=== PATIENT | female | born 1995 | race Caucasian/White ===

== ENCOUNTER → 2017-05-20 | Outpatient (CLI) | payer BC ==
[2017-05-20 09:09] LABS: HEMATOCRIT 36.8 % (36.0-47.0); HEMOGLOBIN 12.8 g/dL (12.0-15.5); HGB HCT DIFFERENCE 1.6; MEAN CORPUSCULAR HEMOGLOBIN 29.6 pg (27.0-33.4); MEAN CORPUSCULAR HGB CONC 34.9 g/dL (32.0-36.0); MEAN CORPUSCULAR VOLUME 85 fl (80-97); RED BLOOD COUNT 4.33 10^6/uL (3.72-5.28); RED CELL DISTRIBUTION WIDTH 12.9 % (11.5-14.0); WHITE BLOOD COUNT 7.6 10^3/uL (4.0-10.5)
[2017-05-20 09:41] LABS: ALANINE AMINOTRANSFERASE 41 U/L (9-52); ALBUMIN 4.5 g/dL (3.5-5.0); ALKALINE PHOSPHATASE 82 U/L (38-126); ANION GAP 13 (5-19); ASPARTATE AMINO TRANSFERASE 22 U/L (14-36); BILIRUBIN,DIRECT 0.4 mg/dL (0.0-0.4); BILIRUBIN,TOTAL 0.4 mg/dL (0.2-1.3); BLOOD UREA NITROGEN 13 mg/dL (7-20); CALCIUM 10.1 mg/dL (8.4-10.2); CARBON DIOXIDE 22 mmol/L (22-30); CHLORIDE 104 mmol/L (98-107); CHOLESTEROL 148.23 mg/dL (0-200); CREATININE RESULT 0.81 mg/dL (0.52-1.25); Direct HDL 44 mg/dL (>40); GLUCOSE 88 mg/dL (75-110); POTASSIUM 3.9 mmol/L (3.6-5.0); SODIUM 139.3 mmol/L (137-145); TOTAL PROTEIN 7.7 g/dL (6.3-8.2); TRIGLYCERIDES 102 mg/dL (<150)
[2017-05-20 09:52] LABS: DIRECT LDL 83 mg/dL (<100)
== END ==
LOC: OD 07:44
PROVIDERS: ATTEND Nurse Practitioner Primary Care
DX: E66.9 Obesity, unspecified (principal); F41.9 Anxiety disorder, unspecified; J03.90 Acute tonsillitis, unspecified; R19.7 Diarrhea, unspecified
CPT/HCPCS: 36415; 80053; 80061; 82306; 82607; 82746; 84443; 85027

== ENCOUNTER 2018-10-25 10:20 | Emergency (ER) | payer BC ==
[2018-10-25 10:33] VITALS: BP 130/62
[2018-10-25] MEDS ORDERED: ONDANSETRON 4 MG TAB.RAPDIS PO ONE (10:57)
--- NOTE | 2018-10-25 10:57 | ER Document Report ---
ED General - General Chief Complaint: Abdominal Pain Stated Complaint: ABDOMINAL PAIN, NAUSEA Time Seen by Provider: 10/25/18 10:34 Primary Care Provider: RAJENDRA LANGFORD NP [Primary Care Provider] - 11/01/18 Mode of Arrival: Ambulatory Information source: Patient Notes: Patient presents emergency department with complaints of vaginal dryness for the past couple weeks. She reports some itching. She was evaluated by her FEDERAL AGENT on Tuesday and she is now feeling a little better. Has been using lubricant at night. she reports the FEDERAL AGENT told her she did not see anything. She reports she started vomiting yesterday once today. She reports she is had nausea for the past couple weeks. Denies fever or diarrhea. Patient does have an appointment with her FEDERAL AGENT on November 01. Does deny urinary frequency reports some pain with void but she believes is due to the dryness. Denies vaginal discharge. Denies vaginal odor TRAVEL OUTSIDE OF THE [place] IN LAST 30 DAYS: No - HPI Onset: Other Onset/Duration: Persistent Quality of pain: Achy Severity: Mild Pain Level: 2 Associated symptoms: Nausea, Vomiting Exacerbated by: Denies Relieved by: Denies Similar symptoms previously: Yes Recently seen / treated by doctor: Yes - Related Data Allergies/Adverse Reactions: No Known Allergies Allergy (Verified 10/25/18 10:36) Past Medical History - General Information source: Patient Last Menstrual Period: 10/18/18 - Social History Smoking Status: Current Some Day Smoker Cigarette use (# per day): Yes Frequency of alcohol use: Occasional Drug Abuse: None Occupation: [employer] Family History: None Patient has suicidal ideation: No Patient has homicidal ideation: No - Past Medical History Cardiac Medical History: Denies: Hx Coronary Artery Disease, Hx Heart Attack, Hx Hypertension Pulmonary Medical History: Denies: Hx Asthma, Hx Bronchitis, Hx COPD, Hx Pneumonia Neurological Medical History: Denies: Hx Cerebrovascular Accident, Hx Seizures Renal/ Medical History: Denies: Hx Peritoneal Dialysis Musculoskeletal Medical History: Denies Hx Arthritis Psychiatric Medical History: Reports: Hx Anxiety, Hx Depression Past Surgical History: Reports: Hx Cholecystectomy, Hx Oral Surgery - Immunizations Hx Diphtheria, Pertussis, Tetanus Vaccination: Yes Review of Systems - Review of Systems Notes: -Review HPI for review of systems., All other systems negative Physical Exam - Vital signs Vitals: Temp Pulse Resp BP Pulse Ox 98.2 F 62 15 130/62 H 99 10/25/18 10:25 10/25/18 10:25 10/25/18 10:25 10/25/18 10:25 10/25/18 10:25 - Notes Notes: PHYSICAL EXAMINATION: GENERAL: Well-appearing and in no acute distress NONTOXIC LOOKING HEAD: Atraumatic, normocephalic. EYES: Pupils equal round , extraocular movements intact, sclera anicteric, conjunctiva are normal. ENT: nares patent, Moist mucous membranes. NECK: Normal range of motion, supple without lymphadenopathy LUNGS: CTAB and equal. No wheezes rales or rhonchi. HEART: Regular rate and rhythm without murmurs ABDOMEN: Soft, slight tenderness umbilical area. No guarding, no rebound BACK: No flank pain EXTREMITIES: Normal range of motion, no pitting edema. No cyanosis. NEUROLOGICAL: Cranial nerves grossly intact. Normal sensory/motor exams. PSYCH: Normal mood, normal affect. SKIN: Warm, Dry, normal turgor, no rashes or lesions noted Course - Re-evaluation Re-evalutation: 10/25/18 10:56 I offered to do another pelvic for the patient but she declined. She reports she would be evaluated by her FEDERAL AGENT on November 01. She is not worried about STDs. She reports her FEDERAL AGENT did check her for that and was told she was negative. Will evaluate for possible UTI questionable . 10/25/18 12:16 Labs unremarkable urine shows trace ketones. Patient has not vomited since arr ival. She has been able to drink p.o. fluids. Patient was instructed on all labs. She was instructed on antinausea medicine. Dictation of this chart was performed using voice recognition software; therefore, there may be some unintended grammatical errors. - Vital Signs Vital signs: Temp Pulse Resp BP Pulse Ox 98.2 F 62 15 130/62 H 99 10/25/18 10:25 10/25/18 10:25 10/25/18 10:25 10/25/18 10:25 10/25/18 10:25 - Laboratory Result Diagrams: 10/25/18 10:51 10/25/18 10:51 Laboratory results interpreted by me: 10/25/18 10:40 Urine Ketones TRACE H Urine Ascorbic Acid 20 H Discharge - Discharge Clinical Impression: Abdominal pain, Nausea & vomiting Condition: Stable Disposition: HOME, SELF-CARE Instructions: Abdominal Pain ([facility]), Antinausea Medication ([facility]) Additional Instructions: *You have been evaluated for abdominal pain, nausea/vomiting, vaginal dryness *Take medication as prescribed for nausea *Push fluids *Follow up with your DISPATCHER MAINTENANCE SERVICE next week as scheduled *Return to ED for worsening condition, changes, needs, Concerns *Return to ED if not better in 24 hours Monitor your blood pressure. Your blood pressure was elevated today. This may be because you were anxious, in pain or because you need medication. It is important to follow up with your primary care provider for full evaluation. Forms: Elevated Blood Pressure, Return to Work Referrals: RAJENDRA LANGFORD NP [Primary Care Provider] - 11/01/18
[2018-10-25 10:58] LABS: APPEARANCE,URINE SLIGHTLY-CLOUDY; BILIRUBIN,URINE NEGATIVE (NEGATIVE); COLOR,URINE YELLOW; GLUCOSE, URINE NEGATIVE (NEGATIVE); KETONES,URINE TRACE mg/dL (NEGATIVE); LEUKOCYTE ESTERASE,URINE NEGATIVE (NEGATIVE); NITRITE,URINE NEGATIVE (NEGATIVE); PROTEIN,URINE NEGATIVE (NEGATIVE); URINE SPECIFIC GRAVITY 1.031; UROBILINOGEN,URINE NEGATIVE mg/dL (<2.0)
[2018-10-25 11:13] LABS: ABSOLUTE EOSINOPHILS # (AUTO) 0.2 10^3/uL (0.0-0.6); ABSOLUTE LYMPHOCYTES (AUTO) 1.7 10^3/uL (0.5-4.7); ABSOLUTE MONOCYTES (AUTO) 0.5 10^3/uL (0.1-1.4); ABSOLUTE NEUT (AUTO) 2.9 10^3/uL (1.7-8.2); BASOPHILS % (AUTO) 0.5 % (0-2); EOSINOPHILS % (AUTO) 3.6 % (0-6); HEMATOCRIT 36.4 % (36.0-47.0); HEMOGLOBIN 12.6 g/dL (12.0-15.5); LYMPHOCYTES % (AUTO) 32.2 % (13-45); MEAN CORPUSCULAR HEMOGLOBIN 29.7 pg (27.0-33.4); MEAN CORPUSCULAR HGB CONC 34.5 g/dL (32.0-36.0); MEAN CORPUSCULAR VOLUME 86 fl (80-97); MONOCYTES % (AUTO) 8.6 % (3-13); PLATELET COUNT 279 10^3/uL (150-450); RED BLOOD COUNT 4.24 10^6/uL (3.72-5.28); RED CELL DISTRIBUTION WIDTH 13.1 % (11.5-14.0); SEGMENTED NEUTROPHILS % (AUTO) 55.1 % (42-78); TOTAL CELLS COUNTED % (AUTO) 100 %; WHITE BLOOD COUNT 5.3 10^3/uL (4.0-10.5)
[2018-10-25 11:43] LABS: ALANINE AMINOTRANSFERASE 31 U/L (9-52); ALBUMIN 4.6 g/dL (3.5-5.0); ALKALINE PHOSPHATASE 64 U/L (38-126); ANION GAP 8 (5-19); ASPARTATE AMINO TRANSFERASE 21 U/L (14-36); BILIRUBIN,DIRECT 0.1 mg/dL (0.0-0.4); BILIRUBIN,TOTAL 0.5 mg/dL (0.2-1.3); BLOOD UREA NITROGEN 14 mg/dL (7-20); CARBON DIOXIDE 25 mmol/L (22-30); CHLORIDE 105 mmol/L (98-107); GLUCOSE 103 mg/dL (75-110); POTASSIUM 3.9 mmol/L (3.6-5.0); SODIUM 137.9 mmol/L (137-145); TOTAL PROTEIN 7.5 g/dL (6.3-8.2)
[2018-10-25] MEDS ORDERED: ONDANSETRON ODT 4 MG TAB (6 TAB/ER DISP) PO PRN (12:11)
== END 2018-10-25 12:26 | disposition home or self-care (01) ==
LOC: ER 10:20
DX: R10.9 Unspecified abdominal pain (principal); R11.2 Nausea with vomiting, unspecified; L29.9 Pruritus, unspecified; R10.2 Pelvic and perineal pain; R10.815 Periumbilic abdominal tenderness; F17.210 Nicotine dependence, cigarettes, uncomplicated
CPT/HCPCS: 99284; 36415; 84702; 85025; 81025; 80053; 81001; S0119

== ENCOUNTER 2019-02-19 01:59 | Emergency (ER) | payer BC ==
[2019-02-19 03:53] LABS: ABSOLUTE EOSINOPHILS # (AUTO) 0.1 10^3/uL (0.0-0.6); ABSOLUTE LYMPHOCYTES (AUTO) 1.8 10^3/uL (0.5-4.7); ABSOLUTE MONOCYTES (AUTO) 0.6 10^3/uL (0.1-1.4); ABSOLUTE NEUT (AUTO) 4.7 10^3/uL (1.7-8.2); BASOPHILS % (AUTO) 0.3 % (0-2); EOSINOPHILS % (AUTO) 1.7 % (0-6); HEMATOCRIT 35.6 % (36.0-47.0); LYMPHOCYTES % (AUTO) 24.8 % (13-45); MEAN CORPUSCULAR HEMOGLOBIN 29.2 pg (27.0-33.4); MEAN CORPUSCULAR HGB CONC 33.7 g/dL (32.0-36.0); MEAN CORPUSCULAR VOLUME 87 fl (80-97); MONOCYTES % (AUTO) 7.7 % (3-13); PLATELET COUNT 234 10^3/uL (150-450); SEGMENTED NEUTROPHILS % (AUTO) 65.5 % (42-78); TOTAL CELLS COUNTED % (AUTO) 100 %; WHITE BLOOD COUNT 7.2 10^3/uL (4.0-10.5)
[2019-02-19] MEDS ORDERED: ACETAMINOPHEN 325 MG TABLET PO ONE (04:44)
--- NOTE | 2019-02-19 05:16 | RADIOLOGY REPORT (SQ) ---
EXAM: Pelvic ultrasound. INDICATION: Pelvic pain. TECHNIQUE: Grayscale and Doppler sonogram of the pelvis. Transabdominal technique was used. Transvaginal technique was used for better evaluation of the pelvic viscera. Note: MSD=mean sac diameter. CRL=crown-rump length. LMP=last menstrual period. MA=mean gestational age. PADDY=estimated date of delivery. COMPARISON: None. FINDINGS: Uterus: Anteverted. Measures 7.7 x 4.0 x 6.1 cm. Endometrium: Intrauterine gestational sac along the left side of the uterus, possibly within a bicornuate uterus/left uterine horn.. Gestational sac: Shape is oval. Fetus: CRL measures 0.62 cm. Heart rate: 106 bpm. Other: Subchorionic hematoma: None. Amniotic fluid: Subjectively within normal limits. Maternal ovaries: Right: Measures 2.9 x 2.7 x 1.4 cm. Normal doppler flow. Left: Measures 3.7 x 2.7 x 2.5 cm. Normal doppler flow. There is a thick-walled cyst that measures 1.4 x 2.0 x 1.8 cm, likely representing a corpus luteal cyst. Clinical: LMP: 12/27/2018. MA: Seven weeks five days. PADDY: 10/03/2019. Ultrasound: MA: Six weeks three days. PADDY: 10/12/2019. IMPRESSION: Single live intrauterine . Possible bicornuate uterus with the gestational sac within the left uterine horn. copyright 2010 [employer]- All Rights Reserved
--- NOTE | 2019-02-19 05:55 | ER Document Report ---
ED General - General Chief Complaint: Vag Bleeding, +preg <12wks Stated Complaint: VAGINAL BLEEDING AND CRAMPING Time Seen by Provider: 02/19/19 03:03 Notes: Patient is a pleasant 23-year-old female presents with complaint of abdominal cramping and bleeding. She is currently . She does not know exactly how far along she has but she says she is early in . This is her first . She says she did pass what appeared to be a clot earlier. Bleeding is since slowed down. No fevers. No vomiting. No other complaints at this time. She is unsure what her blood type is. She has not yet had any treatment. She is not currently taking vitamins. TRAVEL OUTSIDE OF THE [place] IN LAST 30 DAYS: No - Related Data Allergies/Adverse Reactions: No Known Allergies Allergy (Verified 10/25/18 10:36) Past Medical History - General Last Menstrual Period: 12/30/18 - Social History Smoking Status: Never Smoker Frequency of alcohol use: None Drug Abuse: None Family History: None Patient has suicidal ideation: No Patient has homicidal ideation: No - Past Medical History Cardiac Medical History: Denies: Hx Coronary Artery Disease, Hx Heart Attack, Hx Hypertension Pulmonary Medical History: Denies: Hx Asthma, Hx Bronchitis, Hx COPD, Hx Pneumonia Neurological Medical History: Denies: Hx Cerebrovascular Accident, Hx Seizures Renal/ Medical History: Denies: Hx Peritoneal Dialysis Musculoskeletal Medical History: Denies Hx Arthritis Psychiatric Medical History: Reports: Hx Anxiety, Hx Depression Past Surgical History: Reports: Hx Cholecystectomy, Hx Oral Surgery - Immunizations Hx Diphtheria, Pertussis, Tetanus Vaccination: Yes Review of Systems - Review of Systems Notes: My Normal Review Basic REVIEW OF SYSTEMS: CONSTITUTIONAL : Denies fever, chills, or sweats. Denies recent illness. RESPIRATORY: Denies cough, cold, or chest congestion. Denies shortness of breath, difficulty breathing, or wheezing. GASTROINTESTINAL: Some abdominal cramping. Denies nausea, vomiting, or diarrhea. GENITOURINARY: Denies difficulty urinating, painful urination, burning, frequency, or blood in urine. FEMALE GENITOURINARY: Vaginal bleeding in . MUSCULOSKELETAL: Denies neck or back pain or joint pain or swelling. SKIN: Denies rash or skin lesions. NEUROLOGICAL: Denies altered mental status or loss of consciousness. ALL OTHER SYSTEMS REVIEWED AND NEGATIVE. Physical Exam - Vital signs Vitals: Temp Pulse Resp BP Pulse Ox 98.1 F 75 18 107/67 99 02/19/19 02:02 02/19/19 02:02 02/19/19 02:02 02/19/19 02:02 02/19/19 02:02 - Notes Notes: General Appearance: Well nourished, alert, cooperative, no acute distress, no obvious discomfort. Well-appearing. Vitals: reviewed, See vital signs table. Eyes: PERRL, EOMI, Conjuctiva clear Lungs: No wheezing, No rales, No rhonci, No accessory muscle use, good air exchange bilaterally. Heart: Normal rate, Regular rythm, No murmur, no rub Abdomen: Normal BS, soft, No rigidity, No abdominal tenderness, No guarding, no rebound, no abdominal masses, no organomegaly Pelvic exam: Pelvic exam performed with female nurse regional vice president surgical sales, Noa, at bedside. Patient has normal external genitalia. Cervical osseous closed. Small amount of blood in vaginal vault. No clots in cervical loss. Extremities: good pulses in all extremities, no swelling or tenderness in the extremities, no edema. Skin: warm, dry, appropriate color, no rash Neuro: speech clear, oriented x 3, normal affect, responds appropriately to questions. Course - Re-evaluation Re-evalutation: 02/19/19 05:54 Patient does have intrauterine with heart rate. 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 Her reviewed with patient that currently she is not showing a definite miscarriage however her bleeding could persist and she could eventually have a miscarriage or her bleeding consider stopping she can go on to have a normal . I informed her it is very important she follows up the machine tool electrician. I did give her phone number to the machine tool electrician. I encouraged her to start taking vitamins. I encouraged her return to ER anytime if she has increasing bleeding, severe pain, fevers, or if she feels unwell. Patient agrees with plan and will be discharged home. Dictation of this chart was performed using voice recognition software; therefore, there may be some unintended grammatical errors. - Vital Signs Vital signs: Temp Pulse Resp BP Pulse Ox 98.1 F 75 18 107/67 99 02/19/19 02:02 02/19/19 02:02 02/19/19 02:02 02/19/19 02:02 02/19/19 02:02 - Laboratory Result Diagrams: 02/19/19 03:30 Laboratory results interpreted by me: 02/19/19 02/19/19 03:30 03:30 Hct 35.6 L Beta HCG, Quant 41247.00 H Discharge - Discharge Clinical Impression: Vaginal bleeding during Condition: Good Disposition: HOME, SELF-CARE Additional Instructions: Your ultrasound shows that you have a bicornate uterus. This is a years that has almost an M shaped at the top of it. This likely does lead to more bleeding in does sometimes will correlate with increased miscarriage rate. Currently on ultrasound your fetus is in appropriate positioning and has a heartbeat. Please avoid sexual activity for least a week after bleeding has stopped. Please follow-up with a local CREDIT CONTROL MANAGER physician, Dr. Trent. Please return to the ER immediately if you have increasing pain, heavy bleeding, fevers, or if you feel like you are worsening in any way. Please take vitamins or [id number] multivitamins that contain folate or folic acid. Forms: Special Work Note Referrals: BRADFORD TRENT MD [ACTIVE STAFF] - Follow up in 3-5 days
[2019-02-19 06:23] VITALS: BP 105/62
== END 2019-02-19 06:23 | disposition home or self-care (01) ==
LOC: ER 01:59
DX: O20.9 Hemorrhage in early pregnancy, unspecified (principal); O26.891 Other specified pregnancy related conditions, first trimester; R10.9 Unspecified abdominal pain; O34.01 Maternal care for unspecified congenital malformation of uterus, first trimester; Q51.3 Bicornate uterus; Z3A.01 Less than 8 weeks gestation of pregnancy
CPT/HCPCS: 36415; 76817; 84702; 85025; 86900; 86901; 93976; 99284

== ENCOUNTER 2020-01-30 23:15 | Emergency (ER) | payer BC ==
[2020-01-30] MEDS ORDERED: DIPHENHYDRAMINE HCL 25 MG CAPSULE PO ONE (23:47)
[2020-01-30] MEDS ORDERED: METHYLPREDNISOLONE INJ 125 MG/2 ML SDV IV ONE (23:47)
--- NOTE | 2020-01-30 23:48 | ER Document Report ---
HPI - HPI Patient complains to provider of: rash Time Seen by Provider: 01/30/20 23:35 Pain Level: 1 Context: 24-year-old female past medical history significant for anxiety and depression presents to the emergency room complaining of hives on her upper and lower extremities that started around 530 this morning. States it lasted for about approximately 20 minutes and then resolved. States around 230 she had them again lasting an hour and is now had them since 930 without relief. Has tried using [id number] Benadryl lotion without relief. States she did took 1/2 of someone else's Adderall about 24 hours ago. Has taken in the past but has not prescribed it. Denies any shortness of breath, no difficulty breathing. No history of hives in the past. Denies any new stressors. Associated Symptoms: None Exacerbated by: Denies Relieved by: Denies Similar symptoms previously: No Recently seen / treated by doctor: No - ROS Systems Reviewed and Negative: Yes All other systems reviewed and negative - CONSTITUTIONAL Constitutional: DENIES: Fever, Chills - EENT EENT: DENIES: Sore Throat, Congestion - CARDIOVASCULAR Cardiovascular: DENIES: Chest pain - RESPIRATORY Respiratory: DENIES: Trouble Breathing - REPRODUCTIVE Reproductive: DENIES: : - MUSCULOSKELETAL Musculoskeletal: DENIES: Extremity pain - DERM Skin Color: Erythema, Other - Hives Skin Problems: Rash Past Medical History - General Information source: Patient - Social History Smoking Status: Current Every Day Smoker Frequency of alcohol use: Social Drug Abuse: Prescription drugs Family History: None Patient has homicidal ideation: No - Past Medical History Cardiac Medical History: Denies: Hx Coronary Artery Disease, Hx Heart Attack, Hx Hypertension Pulmonary Medical History: Denies: Hx Asthma, Hx Bronchitis, Hx COPD, Hx Pneumonia Neurological Medical History: Denies: Hx Cerebrovascular Accident, Hx Seizures Renal/ Medical History: Denies: Hx Peritoneal Dialysis Musculoskeletal Medical History: Denies Hx Arthritis Psychiatric Medical History: Reports: Hx Anxiety, Hx Depression Past Surgical History: Reports: Hx Cholecystectomy, Hx Oral Surgery - Immunizations Hx Diphtheria, Pertussis, Tetanus Vaccination: Yes Vertical Provider Document - CONSTITUTIONAL Agree With Documented VS: Yes Exam Limitations: No Limitations - INFECTION CONTROL TRAVEL OUTSIDE OF THE [place] IN LAST 30 DAYS: No - HEENT HEENT: Atraumatic, Normocephalic - NECK Neck: Normal Inspection, Supple, Thyroid Normal - RESPIRATORY Respiratory: Breath Sounds Normal, No Respiratory Distress, Chest Non-Tender. negative: Rales, Rhonchi, Wheezing - CARDIOVASCULAR Cardiovascular: Regular Rate, Regular Rhythm, No Murmur - MUSCULOSKELETAL/EXTREMETIES Musculoskeletal/Extremeties: FROM, Non-Tender - NEURO Level of Consciousness: Awake, Alert, Appropriate - DERM Integumentary: Warm, Dry, Rash - Urticaria noted to bilateral upper and lower extremities. Nonblanching, not warm or tender to palpation. No active discharge or draining noted. Course - Re-evaluation Re-evalutation: 01/31/20 00:32 Patient is resting comfortably hives have improved. No shortness of breath, no difficulty breathing. Itching has resolved. Counseled take medications as prescribed. Start the steroids tomorrow. Follow-up with a primary care physician for possible allergy testing. Counseled to avoid taking other peoples medications in the future. Patient was given strict return to the emergency room guidelines. Return for any new or worsening symptoms. All questions were answered. Patient verbalized understanding and agrees with plan of care. - Vital Signs Vital signs: Temp Pulse Resp BP Pulse Ox 98.2 F 77 16 126/70 H 98 01/30/20 23:35 01/30/20 23:19 01/30/20 23:19 01/30/20 23:19 01/30/20 23:19 Discharge - Discharge Clinical Impression: Urticaria Condition: Stable Disposition: HOME, SELF-CARE Instructions: Acute Urticaria ([facility]) Additional Instructions: You were seen today for hives. This can be either allergic, autoimmune, or environmental in origin. You can continue to take cetirizine 10mg once daily, Benadryl 6 hours, or Claritin daily as needed for itching. Take all medications as prescribed. Start the steroids tomorrow.. IF YOU DEVELOP DIFFICULTY BREATHING, SPREADING OF HIVES, VOMITING, LIGHTHEADEDNESS, IMMEDIATELY AND CALL 911. Please follow-up with your primary care physician in the next 1-2 days. Call Your primary care physician for an outpatient follow-up appointment. Prescriptions: Prednisone [Deltasone 20 mg Tablet] See Protocol PO DAILY 9 Days #18 tablet Cyclobenzaprine HCl [Flexeril 10 mg Tablet] 10 mg PO TIDP PRN #15 tab PRN Reason: Naproxen 500 mg PO BID PRN #20 tablet PRN Reason: Referrals: RAJENDRA LANGFORD NP [Primary Care Provider] - Follow up tomorrow (Call tomorrow for an outpatient follow-up appointment)
[2020-01-31 02:50] VITALS: BP 128/68
== END 2020-01-31 00:42 | disposition home or self-care (01) ==
LOC: ER 23:15
DX: L50.9 Urticaria, unspecified (principal); F17.200 Nicotine dependence, unspecified, uncomplicated; F19.10 Other psychoactive substance abuse, uncomplicated
CPT/HCPCS: 99282; 96374; J2930